=== PATIENT | female | born 1935 | race Caucasian/White ===

== ENCOUNTER 2017-05-05 18:31 | Emergency (ER) | payer MEDICARE, MEDICAID ==
--- NOTE | 2017-05-05 19:08 | Emergency Department Record ---
History of Present Illness - General Chief Complaint: Fall Injury Stated Complaint: FALL INJURY/HEAD Time Seen by Provider: 05/05/17 19:02 Source: Patient (Care provider) Mode of Arrival: Ambulatory Limitations: No limitations - History of Present Illness Initial Comments: 81 yo female presents to ED following a witnessed fall this evening. Care provider reports that she was attempting to squeeze between a table when she feel. Patient's history is limited due to mental retardation. Injury did result in small laceration to the right scalp. Care worker reports that patient has been acting at her baseline following injury. MD Complaint: Fall Onset/Timin -: Hour(s) Fall From: Other When Fall Occurred: 1 hour BUSINESS ASSISTANT Fall Witnessed: Yes, by living facility staff Place Fall Occurred: [facility] Loss of Consciousness: None Prolonged Down Time?: No Symptoms Prior to Fall: None Location: Head Severity: Mild Context: Tripped/slipped Associated Symptoms: Denies - [place] Coma Scale Eye Response: (4) Open spontaneously Motor Response: (6) Obeys commands Verbal Response: (5) Oriented [place] Total: 15 - Related Data Home Medications Medication Instructions Recorded Confirmed Last Taken Alendronate Sodium [Fosamax] 70 mg PO WEEKLY 05/05/17 05/05/17 Unknown Calcium Carbonate/Vitamin D3 1 each PO DAILY 05/05/17 05/05/17 Unknown [Oyster Shell Calcium-Vit D Tab] Docusate Sodium [Colace] 100 mg PO DAILY 05/05/17 05/05/17 Unknown Multivit,Calc,Mins/Iron/Folic 1 each PO DAILY 05/05/17 05/05/17 Unknown [Thera M Plus Tablet] Allergies Allergy/AdvReac Type Severity Reaction Status Date / Time No Known Drug Allergies Allergy Verified 05/05/17 18:51 Travel Screening - Travel/Exposure Within Last 30 Days Have you traveled within the last 30 days?: No Review of Systems ROS unobtainable: Other Past Medical History - SOCIAL HISTORY Smoking Status: Never smoker Family Medical History Any Significant Family History?: No Physical Exam - General General Appearance: Alert, Cooperative, No acute distress Limitations: No limitations - Head Head exam: Other Head exam detail: Abrasion. negative: Hematoma, Laceration - Eye Eye exam: Normal appearance. negative: Conjunctival injection, Periorbital swelling, Periorbital tenderness, Scleral icterus - ENT Ear exam: negative: Auricular hematoma, Auricular trauma Nasal Exam: negative: Active bleeding, Discharge, Dried blood, Foreign body Mouth exam: negative: Drooling, Laceration, Muffled voice, Tongue elevation - Neck Neck exam: Normal inspection. negative: Meningismus - Respiratory Respiratory exam: Normal lung sounds bilaterally. negative: Rales, Respiratory distress, Rhonchi, Stridor - Cardiovascular Cardiovascular Exam: Regular rate, Normal rhythm, Normal heart sounds - GI/Abdominal GI/Abdominal exam: Soft. negative: Rebound, Rigid, Tenderness - Rectal Rectal exam: Deferred - exam: Deferred - Extremities Extremities exam: Normal inspection. negative: Pedal edema, Tenderness - Neurological Neurological exam: Alert, Other (at baseline mental status). negative: Motor sensory deficit - Psychiatric Psychiatric exam: Normal affect, Normal mood - Skin Skin exam: Normal color. negative: Abrasion Type of lesion: negative: abrasion Course Vital Signs 05/05/17 18:46 Temperature 97.6 F Pulse Rate 89 Respiratory 18 Rate Blood Pressure 172/109 Pulse Ox 99 - Reevaluation(s) Reevaluation #1: 05/05/17 19:33 CT Brain: No acute traumatic injury CT Cervical Spine: No acute traumatic injury Procedure Note: Following cleaning of the patient's wound, there is a 1.5 cm laceration to the temporal-parietal scalp region. Wound was cleaned with ShurClens solution, no FB's identified. Wound was then closed with Berto x 2 with good cosmesis. Patient tolerated the procedure well. Patient appears stable for discharge at this time. Disposition Disposition: Discharge Clinical Impression: Fall Qualifiers: Encounter type: initial encounter Qualified Code(s): W19.XXXA - Unspecified fall, initial encounter Scalp laceration Qualifiers: Encounter type: initial encounter Qualified Code(s): S01.01XA - Laceration without foreign body of scalp, initial encounter Disposition: Home, Self-Care Condition: (2) Stable Instructions: Fall Prevention for Older Adults (ED), Staple Care (ED) Additional Instructions: Return to ED if your symptoms worsen or if you have any concerns. Follow-up with your family doctor in 3-5 days as directed. Bailey out in 10-14 days. Forms: Patient Portal Access Time of Disposition: 19:44 Quality - Quality Measures Quality Measures: N/A - Blood Pressure Screening Does Patient Have Any of the Following: No Blood Pressure Classification: Hypertensive Reading Systolic Measurement: 172 Diastolic Measurement: 109 Screening for High Blood Pressure: < First Hypertensive BP, F/U Documented > [ G8950] First Hypertensive Follow-up Interventions: Referral to alternative/primary care provider.
--- NOTE | 2017-05-06 09:15 | CT SCAN REPORT ---
EXAM: CT OF THE BRAIN WITHOUT CONTRAST HISTORY: FALL. TECHNIQUE: CT of the brain without contrast was obtained. Comparison: None. FINDINGS: The globes are intact. The paranasal sinuses and mastoid air cells are unremarkable. There is no displaced or depressed skull fracture. There is no intra or extraaxial hemorrhage. CT is limited for the evaluation of acute infarct. No CT evidence for large or territorial acute infarct. No mass or midline shift. Age appropriate atrophy with minor small vessel ischemic change. IMPRESSION: AGE APPROPRIATE ATROPHY. MINOR SMALL VESSEL ISCHEMIC CHANGE. JOB NUMBER: [id number] [facility]
--- NOTE | 2017-05-06 09:18 | CT SCAN REPORT ---
EXAM: CT OF THE CERVICAL SPINE HISTORY: FALL. TECHNIQUE: Axial CT images of the cervical spine were obtained with coronal and sagittal reconstructions. Comparison: None. FINDINGS: Evaluation of the spinal canal contents is limited due to CT technique, however, the vertebral body height and alignment is preserved. There is no fracture/compression deformity or subluxation. The surrounding soft tissues are grossly unremarkable. Calcified granuloma noted in the left upper lobe. Atheromatous change of the thoracic aorta. The disk spaces are maintained. IMPRESSION: NEGATIVE FOR ACUTE CERVICAL SPINE ABNORMALITY. JOB NUMBER: [id number] [facility]
== END 2017-05-05 19:56 | disposition home or self-care (01) ==
LOC: EDBD → ER 18:31
DX: S01.01XA Laceration without foreign body of scalp, initial encounter (principal); W01.0XXA Fall on same level from slipping, tripping and stumbling without subsequent striking against object, initial encounter; Y92.129 Unspecified place in nursing home as the place of occurrence of the external cause; F72 Severe intellectual disabilities
CPT/HCPCS: 12001; 70450; 72125; 99283; 99284

== ENCOUNTER 2017-05-08 12:47 | Emergency (ER) | payer MEDICARE, MEDICAID ==
[2017-05-08] MEDS ORDERED: 0.9 % SODIUM CHLORIDE 1000ML 1,000 ML IV PRN (14:22)
[2017-05-08 14:54] LABS: BASO % 0.1 % (0-6); EOS % 0.1 % (0-6); GRAN % 74.9 % (47-80); HEMATOCRIT 37.5 % (35.0-47.0); HEMOGLOBIN 12.5 gm/dl (11.6-16.0); LYMPH % 10.5 % (16-45); MEAN CELL VOLUME 97.4 fl (81-97); MEAN CORPUSCULAR HEMOGLOBIN 32.5 pg (27-33); MEAN CORPUSCULAR HGB CONC 33.3 g/dl (32-36); MEAN PLATELET VOLUME 9.3 fl (7.4-10.4); MONO % 14.4 % (0-9); PLATELET COUNT 242 K/uL (130-400); RED BLOOD COUNT 3.85 M/uL (3.80-5.40); RED CELL DISTRIBUTION WIDTH 13.3 % (11.5-14.5); WHITE BLOOD COUNT W/O DIFF 6.9 K/uL (4.2-12.2)
[2017-05-08 15:03] LABS: ALKALINE PHOSPHATASE 78 U/L (38-126); ALT/SGPT 44 U/L (9-52); ANION GAP 9.1 (7-16); AST/SGOT 31 U/L (14-36); BLOOD UREA NITROGEN 15 mg/dL (7-17); CARBON DIOXIDE 30.9 mmol/L (22-30); CREATININE 0.6 mg/dL (0.52-1.04); EST GLOMERULAR FILTRATION RATE > 60 ml/min; GLUCOSE,RANDOM 124 mg/dL (70-110); LIPASE 56 U/L (23-300); TOTAL PROTEIN 6.8 gm/dL (6.3-8.2)
--- NOTE | 2017-05-08 15:42 | Emergency Department Record ---
History of Present Illness - General Chief Complaint: Fall Injury Stated Complaint: FALL Time Seen by Provider: 05/08/17 14:17 Mode of Arrival: Ambulatory - History of Present Illness Initial Comments: fall two days ago and having back pain since than. She was seen in the ED 3 days ago with niesha in her head. patient mentally retartded and her caregiver states no vomiting and eating OK and sitting causes her pain. Moving causes her pain. Complaint: Fall Onset/Timin -: Days(s) Fall From: Standing, Other When Fall Occurred: # Days [employer]IST - [place] Coma Scale Eye Response: (4) Open spontaneously Motor Response: (6) Obeys commands - Related Data Previous Rx's Medication Instructions Recorded Polyethylene Glycol 3350 [Miralax] 1 packet PO DAILY #30 packet 05/08/17 Tramadol HCl [Ultram] 25 mg PO Q8H #30 tab 05/08/17 Allergies Allergy/AdvReac Type Severity Reaction Status Date / Time No Known Drug Allergies Allergy Verified 05/05/17 18:51 Travel Screening - Travel/Exposure Within Last 30 Days Have you traveled within the last 30 days?: No - Travel/Exposure Within Last Year Have you traveled outside the [place] in the last year?: No - Additonal Travel Details Have you been exposed to anyone with a communicable illness?: No - Travel Symptoms Symptom Screening: None Review of Systems Reviewed: No additional complaints except as noted below Constitutional: Reports: As per HPI. Denies: Chills, Fever, Malaise, Night sweats, Weakness, Weight change Eyes: Reports: As per HPI. Denies: Eye discharge, Eye pain, Photophobia, Vision change ENT: Reports: As per HPI. Denies: Congestion, Dental pain, Ear pain, Epistaxis , Hearing loss, Throat pain Respiratory: Reports: As per HPI. Denies: Cough, Dyspnea, Hemoptysis, Stridor, Wheezes Cardiovascular: Reports: As per HPI. Denies: Arrhythmia, Chest pain, Dyspnea on exertion, Edema, Murmurs, Orthopnea, Palpitations, Paroxysmal nocturnal dyspnea, Rheumatic Fever, Syncope Endocrine: Reports: As per HPI. Denies: Fatigue, Heat or cold intolerance, Polydipsia, Polyuria Gastrointestinal: Reports: As per HPI. Denies: Abdominal pain, Constipation, Diarrhea, Hematemesis, Hematochezia, Melena, Nausea, Vomiting Genitourinary: Reports: As per HPI. Denies: Abnormal menses, Discharge, Dyspareunia, Dysuria, Frequency, Hematuria, Incontinence, Retention, Urgency Musculoskeletal: Reports: As per HPI, Back pain. Denies: Arthralgia, Gout, Joint swelling, Myalgia, Neck pain Skin: Reports: As per HPI. Denies: Bruising, Change in color, Change in hair/ nails, Lesions, Pruritus, Rash Neurological: Reports: As per HPI. Denies: Abnormal gait, Confusion, Headache, Numbness, Paresthesias, Seizure, Tingling, Tremors, Vertigo, Weakness Psychiatric: Reports: As per HPI. Denies: Anxiety, Auditory hallucinations, Depression, Homicidal thoughts, Suicidal thoughts, Visual hallucinations Hematological/Lymphatic: Reports: As per HPI. Denies: Anemia, Blood Clots, Easy bleeding, Easy bruising, Swollen glands Past Medical History - SOCIAL HISTORY Smoking Status: Never smoker Alcohol Use: None Drug Use: None - RESPIRATORY Hx Respiratory Disorders: No - CARDIOVASCULAR Hx Cardio Disorders: No - NEURO Hx Neuro Disorders: Yes Comment:: Mental retardation - GI Hx GI Disorders: No - Hx Genitourinary Disorders: No - ENDOCRINE Hx Endocrine Disorders: No - MUSCULOSKELETAL Hx Musculoskeletal Disorders: No - PSYCH Hx Psych Problems: Yes Comment:: mental retardation - HEMATOLOGY/ONCOLOGY Hx Hematology/Oncology Disorders: Yes Comment:: osteopenia, Family Medical History Any Significant Family History?: No Physical Exam - General General Appearance: Alert, Oriented x3, Cooperative, No acute distress - Head Head exam: Normal inspection - Eye Eye exam: Normal appearance, PERRL Pupils: Normal accommodation - ENT ENT exam: Normal exam, Mucous membranes moist, Normal external ear exam, Normal orophraynx, TM's normal bilaterally Ear exam: Normal external inspection. negative: External canal tenderness Nasal Exam: Normal inspection. negative: Discharge, Sinus tenderness Mouth exam: Normal external inspection, Tongue normal Teeth exam: Normal inspection. negative: Dental caries Throat exam: Normal inspection. negative: Tonsillar erythema, Tonsillar exudate - Neck Neck exam: Normal inspection, Full ROM. negative: Tenderness - Respiratory Respiratory exam: Normal lung sounds bilaterally. negative: Respiratory distress - Cardiovascular Cardiovascular Exam: Regular rate, Normal rhythm, Normal heart sounds - GI/Abdominal GI/Abdominal exam: Soft, Normal bowel sounds. negative: Tenderness - Rectal Rectal exam: Deferred - exam: Deferred - Extremities Extremities exam: Normal inspection, Full ROM, Normal capillary refill. negative: Tenderness - Back Back exam: Reports: Normal inspection, Full ROM, Muscle spasm, Tenderness. Denies: Rash noted - Neurological Neurological exam: Alert, Normal gait, Oriented X3, Reflexes normal - Psychiatric Psychiatric exam: Normal affect, Normal mood - Skin Skin exam: Dry, Intact, Normal color, Warm Course Vital Signs 05/08/17 13:14 Temperature 98.3 F Pulse Rate 101 H Respiratory 18 Rate Blood Pressure 122/86 Pulse Ox 97 Medical Decision Making - Data Complexity MDM Data: Labs Ordered and/or Reviewed, X-Ray Ordered and/or Reviewed ( compression fracture of t9 new and t 11 old) - Lab Data Result diagrams: 05/08/17 14:34 05/08/17 14:34 Lab Results 05/08/17 05/08/17 Range/Units 14:34 14:34 WBC 6.9 (4.2-12.2) K/uL RBC 3.85 (3.80-5.40) M/uL Hgb 12.5 (11.6-16.0) gm/dl Hct 37.5 (35.0-47.0) % MCV 97.4 H (81-97) fl MCH 32.5 (27-33) pg MCHC 33.3 (32-36) g/dl RDW 13.3 (11.5-14.5) % Plt Count 242 (130-400) K/uL MPV 9.3 (7.4-10.4) fl Gran % 74.9 (47-80) % Lymphocytes % 10.5 L (16-45) % Monocytes % 14.4 H (0-9) % Eosinophils % 0.1 (0-6) % Basophils % 0.1 (0-6) % Sodium 134 L (136-145) mmol/L Potassium 4.3 (3.5-5.1) mmol/L Chloride 94 L (98-107) mmol/L Carbon Dioxide 30.9 H (22-30) mmol/L Anion Gap 9.1 (7-16) BUN 15 (7-17) mg/dL Creatinine 0.6 (0.52-1.04) mg/dL Estimated GFR > 60 ml/min Random Glucose 124 H (70-110) mg/dL Calcium 8.9 (8.5-10.1) mg/dL Total Bilirubin 0.50 (0.2-1.3) mg/dL Direct Bilirubin 0.0 (0-0.3) mg/dL AST 31 (14-36) U/L ALT 44 (9-52) U/L Alkaline Phosphatase 78 (38-126) U/L Total Protein 6.8 (6.3-8.2) gm/dL Albumin 4.0 (3.5-5.0) gm/dL Lipase 56 (23-300) U/L Disposition Clinical Impression: Compression fracture of thoracic vertebra Qualifiers: Encounter type: initial encounter Fracture type: closed Qualified Code(s): S22.000A - [place] compression fracture of unspecified thoracic vertebra, initial encounter for closed fracture Fall Qualifiers: Encounter type: subsequent encounter Qualified Code(s): W19.XXXD - Unspecified fall, subsequent encounter Disposition: Home, Self-Care Condition: (1) Good Instructions: Fall Prevention for Older Adults (ED), Vertebral Compression Fracture (ED) Additional Instructions: use tylenol 325mg two pill three times a day for severe pain ultram(tramadol) 25 mg Three times a day( one half a pill of 50 mg ) follow up with Dr. Ruiz in 1-2 weeks Prescriptions: Polyethylene Glycol 3350 [Miralax] 1 packet PO DAILY #30 packet Tramadol HCl [Ultram] 25 mg PO Q8H #30 tab Forms: Patient Portal Access Time of Disposition: 15:54 Quality - Quality Measures Quality Measures: N/A - Blood Pressure Screening Does Patient Have Any of the Following: No Blood Pressure Classification: Pre-Hypertensive BP Reading Systolic Measurement: 122 Diastolic Measurement: 86 Screening for High Blood Pressure: < Pre-Hypertensive BP, F/U Documented > [ G8950] Pre-Hypertensive Follow-up Interventions: Referral to alternative/primary care provider.
--- NOTE | 2017-05-09 13:11 | CT SCAN REPORT ---
DATE: 05/07/2017. EXAM: CT SCAN OF THE ABDOMEN AND PELVIS WITHOUT CONTRAST. HISTORY: Fall. TECHNIQUE: Sequential axial images were obtained from the diaphragms through the ischiorectal fossa without intravenous or oral contrast administration. FINDINGS: There is minimal atelectasis in both lung bases. The nonopacified liver, gallbladder, pancreas, and spleen appear normal. The adrenal glands and kidneys appear normal. There is a large amount of stool throughout the colon. This limits evaluation. The urinary bladder appears normal. 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 There is osteopenia. There are compression fracture deformities of T11 and T9. There is approximately 80 percent loss of height. No new hip fracture is appreciated. IMPRESSION: 1. COMPRESSION FRACTURE DEFORMITIES OF T9 AND T11 WITH APPROXIMATELY 80 PERCENT LOSS OF HEIGHT. UNDERLYING OSTEOPENIA. 2. A LARGE AMOUNT OF STOOL THROUGHOUT THE ENTIRE COLON CONSISTENT WITH CONSTIPATION. THIS LIMITS THE EVALUATION OF THE REMAINDER OF THE VISCERAL STRUCTURES. NO GROSS ABNORMALITIES ARE APPRECIATED. JOB NUMBER: [id number] [facility]
== END 2017-05-08 16:24 | disposition home or self-care (01) ==
LOC: EDBD 12:47 → ER 12:47
DX: M48.54XA Collapsed vertebra, not elsewhere classified, thoracic region, initial encounter for fracture (principal); W19.XXXA Unspecified fall, initial encounter
CPT/HCPCS: 74176; 80048; 80076; 83690; 85025; 99283; 99284